=== PATIENT | male | born 1990 | race African-American/Black ===

== ENCOUNTER 2017-06-13 16:09 | Emergency (ER) | payer OTHER ==
[~2017-06-13] VITALS: Ht 172.7 cm; Wt 72.2 kg
--- NOTE | 2017-06-13 17:20 | REP ---
Right hand series: Four views: History: Right hand injury. Findings: Four views of the right hand demonstrate a slightly comminuted boxer's fracture with mild impaction and with apex dorsal and ulnar angulation. There is associated soft-tissue swelling. Impression: Boxer's fracture right 5th metacarpal apex dorsal and ulnar angulation. Signed by Marv Mccarty MD 06/13/2017 06:41 P
[2017-06-13] MEDS ORDERED: NORCOTAB PO (17:25)
[2017-06-13 17:34] VITALS: BP 127/69
== END 2017-06-13 17:36 | disposition home or self-care (01) ==
LOC: M ED 16:09
DX: S62.336A Displaced fracture of neck of fifth metacarpal bone, right hand, initial encounter for closed fracture (principal); W22.8XXA Striking against or struck by other objects, initial encounter; Y92.019 Unspecified place in single-family (private) house as the place of occurrence of the external cause; Y93.89 Activity, other specified; Y99.8 Other external cause status